=== PATIENT | male | born 1955 | race Two or more races ===

== ENCOUNTER 2024-03-20 01:21 | Inpatient (IN) | payer MEDICARE, BC ==
[~2024-03-20] VITALS: Ht 177.8 cm; Wt 111.6 kg
[2024-03-20] VITALS (7 sets, daily range): BP systolic 108–144; BP diastolic 47–87; PULSE 58–68; RESP 16–18; TEMP 97.1–98.3; O2SAT 91–98
[2024-03-20] MEDS: MORPHINE SULFATE 4 MG/ML SYR/VIAL IV ONE (02:20)
[2024-03-20] MEDS: ONDANSETRON HCL 4 MG/2 ML VIAL IV ONE (02:21)
[2024-03-20] MEDS: HYDROcodone-ACET 10/325MG TAB PO ONE (03:21)
[2024-03-20] MEDS: FAMOTIDINE (10MG/ML) 2ML VL IV ONE (03:21)
[2024-03-20] MEDS: MAGNESIUM SULFATE 1GM/100ML 100 ML IV SCH (03:22)
[2024-03-20 03:40] LABS: Urine Bacteria None Seen /hpf (None Seen)
[2024-03-20] MEDS ORDERED: ONDANSETRON HCL 4 MG/2 ML VIAL IV PRN (03:45)
[2024-03-20] MEDS ORDERED: HYDROcodone-ACET 5/325MG TAB PO PRN (03:45)
[2024-03-20] MEDS ORDERED: ACETAMINOPHEN 325 MG TAB PO PRN (03:45)
[2024-03-20] MEDS ORDERED: MORPHINE SULFATE INJ 2 MG/ml SYRG IV PRN (03:45)
[2024-03-20 04:00] LABS: Basophils # (auto) 0.1 10 ^3/uL (0-0.2); Basophils % (auto) 0.7 % (0.0-2.0); Eosinophils # (auto) 0.1 10 ^3/uL (0-0.8); Eosinophils % (auto) 1.4 % (0.0-7.0); Hematocrit 45.9 % (41.0-53.0); Hemoglobin 15.6 g/dL (13.5-17.5); Lymphocytes # (auto) 1.9 10 ^3/uL (0.4-5.4); Lymphocytes % (auto) 21.8 % (10.0-50.0); Mean Corpuscular Hemoglobin 31.9 pg (28.0-32.0); Mean Corpuscular Hgb Conc. 33.9 g/dL (32.0-36.0); Monocytes # (auto) 1.1 10 ^3/uL (0-1.3); Monocytes % (auto) 12.7 % (0.0-12.0); Neutrophils # (auto) 5.5 10 ^3/uL (1.6-8.6); Neutrophils % (auto) 63.4 % (37.0-80.0); Red Blood Cells 4.88 10^6/uL (4.5-5.90); Red Cell Distribution Width 13.9 % (11.8-14.3); White Blood Cell 8.8 10^3/uL (4.4-10.8)
[2024-03-20 04:03] LABS: Urine Blood 3+ /uL (Negative); Urine Clarity Clear (Clear); Urine Color Light-Yellow (Yellow); Urine Hyaline Cast FEW /lpf (0 - 2); Urine Protein, UAD Negative (Negative); Urine Urobilinogen Normal (Negative); Urine WBC 2 /hpf (0 - 3)
[2024-03-20 04:37] LABS: Alanine Aminotransferase 33 U/L (7-40); Alkaline Phosphatase 88 U/L (46-116); Anion Gap 7 (5-15); Aspartate Aminotransferase 21 U/L (13-40); BUN/Creatinine Ratio 9.4 (10.0-20.0); Bilirubin, Total 0.8 mg/dL (0.2-1.0); Blood Urea Nitrogen 18 mg/dL (9-23); Calcium 9.4 mg/dL (8.5-10.1); Carbon Dioxide 21 mmol/L (20-30); Chloride 111 mmol/L (98-107); Glucose 105 mg/dL (74-106); Potassium 4.2 mmol/L (3.5-5.1); Sodium 139 mmol/L (136-145); Total Protein 6.9 g/dL (5.7-8.2)
[2024-03-20] MEDS: cefTRIAXone 1GM/50ML D5W 50 ML IV SCH (09:40)
[2024-03-20] MEDS: LISINOPRIL 5 MG TAB PO SCH (10:29)
== END 2024-03-20 17:23 | disposition left against medical advice (07) | DRG 690 ==
LOC: EDBD 01:21 → ER 01:21 → OVERFLOW 03:34 → WEST WING 05:37
PROVIDERS: ADMIT Nurse Practitioner; ATTEND Family Medicine
DX: N13.6 Pyonephrosis (principal); N20.1 Calculus of ureter; E86.0 Dehydration; I10 Essential (primary) hypertension; E78.00 Pure hypercholesterolemia, unspecified; Z98.61 Coronary angioplasty status; Z87.891 Personal history of nicotine dependence; Z53.29 Procedure and treatment not carried out because of patient's decision for other reasons; I25.2 Old myocardial infarction; Z82.49 Family history of ischemic heart disease and other diseases of the circulatory system
CPT/HCPCS: 36415; 74018; 74176; 76775; 80053; 81001; 85025; 93005; 96365; 96375; G0378; J3490